=== PATIENT | male | born 1970 | race African-American/Black ===

== ENCOUNTER 2018-02-23 07:13 | Day surgery (SDC) | payer MEDICAID ==
[~2018-02-23 07:13] MED LIST: ACETAMINOPHEN 1,000 MG/100 ML BTL IV ONE; CEFAZOLIN 2 Gram 2 GM/50 ML BAG IVPB ONE
[2018-02-23] MEDS ORDERED: FENTANYL PF 100MCG/2ML VIAL IV ONE (07:14)
[2018-02-23] MEDS ORDERED: MIDAZOLAM HCL 2MG/2ML VIAL IV ONE (07:14)
[2018-02-23] MEDS ORDERED: KETOROLAC 30 MG/ML VIAL IVP ONE (07:14)
[2018-02-23] MEDS ORDERED: SUCCINYLCHOLINE 20 MG/ML 10ML IVP ONE (07:14)
[2018-02-23] MEDS ORDERED: DEXAMETHASONE 4 MG/ML 1ML VIAL IVP ONE ×2 (07:14)
[2018-02-23] MEDS ORDERED: GLYCOPYRROLATE 0.2 MG/ML ML IV ONE (07:14)
[2018-02-23] MEDS ORDERED: ROPIVACAINE HCL (NAROPIN) /PF 5MG/ML 20ML VIAL IV ONE (07:14)
[2018-02-23] MEDS ORDERED: HYDROMORPHONE HCL 2 MG/ML VIAL IV ONE (07:14)
[2018-02-23] MEDS ORDERED: PROPOFOL 10 MG/ML VIAL IV ONE (07:14)
[2018-02-23] MEDS ORDERED: BUPIVACAINE 0.25% W/EPI MPF 30ML VIAL IVP ONE (07:14)
[2018-02-23] MEDS ORDERED: ROCURONIUM BROMIDE 50MG/5ML VIAL IV ONE (07:14)
[2018-02-23] MEDS ORDERED: LIDOCAINE 2% MDV (20MG/ML) 20ML VIAL IV ONE (07:14)
[2018-02-23] MEDS ORDERED: NEOSTIGMINE 1 MG/1 ML,10ML VIAL IV ONE (07:14)
[2018-02-23] MEDS ORDERED: SEVOFLURANE 250 ML INH ONE (07:14)
[2018-02-23] MEDS ORDERED: HYDROCODONE/APAP 5/325MG TABLET PO ONE (07:14)
[2018-02-23] MEDS ORDERED: ONDANSETRON HCL IV 4 MG/2 ML VIAL IVP ONE (07:14)
[2018-02-23 07:27] LABS: BASO % 1.4 % (0-6); EOS % 4.1 % (0-6); GRAN % 38.6 % (47-80); HEMATOCRIT 35.9 % (42.0-52.0); LYMPH % 44.6 % (16-45); MEAN CELL VOLUME 79.1 fl (81-97); MEAN CORPUSCULAR HEMOGLOBIN 24.2 pg (27-33); MEAN CORPUSCULAR HGB CONC 30.6 g/dl (32-36); MEAN PLATELET VOLUME 9.4 fl (7.4-10.4); MONO % 11.3 % (0-9); PLATELET COUNT 274 K/uL (130-400); RED BLOOD COUNT 4.54 M/uL (4.40-5.70); RED CELL DISTRIBUTION WIDTH 15.9 % (11.5-14.5); WHITE BLOOD COUNT W/O DIFF 4.2 K/uL (4.2-12.2)
--- NOTE | 2018-02-23 15:10 | Operative Note ---
DATE OF SURGERY: 02/23/2018 Surgeon: Solomon Gonsalez DO PREOPERATIVE DIAGNOSIS: Right inguinoscrotal hernia. POSTOPERATIVE DIAGNOSIS: Right inguinoscrotal hernia. OPERATION: 1. Open right inguinal herniorrhaphy with mesh. 2. Partial omentectomy. Indication: The patient is a 48-year-old male who has had a long-standing 25-year right inguinal hernia. This has enlarged in time. When he presented to the office, he had a very large inguinoscrotal hernia. We did discuss repair. Risks, benefits, and alternatives were discussed. Risks include but are not limited to bleeding, infection, acute or chronic pain, recurrence, possible orchiectomy. He understood this fully. He did have some asymmetry in his testicle to begin with, with his right side being smaller. Thereafter, consent was signed and questions answered. PROCEDURE: The patient was taken to the operating room and placed in a supine position. General anesthesia was administered per the department of anesthesia. The patient's right inguinal region and scrotum were prepped and draped in the usual fashion. The patient had undergone a preoperative ilioinguinal block per the department of anesthesia. At this time, the oblique region was anesthetized with a total of 5 mL of 0.25% Sensorcaine with epinephrine. A 6 cm oblique incision was made. This was carried down through Da layer to the aponeurosis of the external oblique. We did encounter a very large hernia sac. This was reduced down to the scrotum and it appeared to contain mostly omentum. This was from the spermatic cord. Once this was taken down, the hernia sac was opened. This did contain fluid and incarcerated omentum. I was unable to reduce this through the deep inguinal ring. Therefore, partial omentectomy was done with an end seal device through the hernia sac. The remaining parts were then reduced. The hernia sac was then ligated proximally. The extra large plug was placed in the deep inguinal ring and was sutured in with 2-0 Vicryl. There was also a direct hernia sac noted where this was amputated as well. A large right ProGrip mesh was obtained. This was placed in the floor of the inguinal canal with excellent overlap of the pubic tubercle. Stitches went to the level of pubic tubercle, the second portion of the inguinal ligament, and the internal oblique aponeurosis. The aponeurosis was closed over the cord with 2-0 Vicryl, the Da layer was closed with 3-0 Vicryl, and skin was closed with 4-0 Vicryl. I did have to reduce the patient's testicle and spermatic cord back near the scrotum. There was no twisting or tension. This was done prior to closure. The patient was taken to the recovery room in satisfactory condition. FINDINGS AT THE TIME OF SURGERY: Incarcerated right inguinal hernia containing omentum requiring partial omentectomy and repair. CC: Christopher DEWITT
== END 2018-02-23 12:10 | disposition home or self-care (01) ==
LOC: SUR 07:13
PROVIDERS: ATTEND Surgery
DX: K40.30 Unilateral inguinal hernia, with obstruction, without gangrene, not specified as recurrent (principal)
CPT/HCPCS: 49507; 00830; 85025; J1885; J2405; J3010; J1170; J0690; J2795; C1776; J0330; J2710